=== PATIENT | female | born 1950 ===

== ENCOUNTER 2020-01-22 18:40 | Emergency (ER) | payer MEDICARE ==
[~2020-01-22] VITALS: Ht 157.5 cm; Wt 63.5 kg
[2020-01-22] MEDS ORDERED: HCTZ (18:49)
[2020-01-22] MEDS ORDERED: NIFEDIPINE (18:49)
--- NOTE | 2020-01-22 18:53 | NUR ---
PT IS IN ROOM #1B. DR CHAVEZ EVALUATED THE PT.
[2020-01-22] MEDS ORDERED: PROCHLORPERAZINE EDISYLATE 10 MG/2 ML VIAL IV ONE (19:00)
[2020-01-22] MEDS ORDERED: diphenhydrAMINE 50 MG/1 ML VIAL IV ONE (19:00)
--- NOTE | 2020-01-22 19:00 | NUR ---
Patient A/Ox4. Speech is clear, speaks in complete sentences. No acute neuro deficits noted. Patient is able to follow complex commands, equal extermination supervisor and strength both upper/lower extremities. Respiratory even and unlabored, no reports of cough or sob. Denies any n/v/d, or any gu distress. Will standby for MD order.
[2020-01-22] MEDS ORDERED: ASPI81TA31 PO (19:09)
[2020-01-22] MEDS ORDERED: PROCHLORPERAZINE EDISYLATE 10 MG/2 ML VIAL ONE (19:19)
[2020-01-22] MEDS ORDERED: diphenhydrAMINE 50 MG/1 ML VIAL ONE (19:19)
[2020-01-22 19:25] LABS: BASOPHILS # (AUTO) 0.1 K/uL (0.0-8.0); BASOPHILS % (AUTO) 1.1 % (0.0-2.0); EOSINOPHILS # (AUTO) 0.2 K/uL (0.0-0.7); EOSINOPHILS % (AUTO) 2.2 % (0.0-7.0); HEMATOCRIT 39.6 % (31.2-41.9); HEMOGLOBIN 13.3 g/dL (10.9-14.3); LYMPHOCYTES # (AUTO) 3.4 K/uL (20.0-40.0); LYMPHOCYTES % (AUTO) 41.9 % (20.5-51.5); MEAN CORPUSCULAR HEMOGLOBIN 27.3 uug (24.7-32.8); MEAN CORPUSCULAR HGB CONC 34 g/dL (32.3-35.6); MEAN CORPUSCULAR VOLUME 80.9 fL (75.5-95.3); MONOCYTES # (AUTO) 0.8 K/uL (2.0-10.0); MONOCYTES % (AUTO) 9.6 % (0.0-11.0); NEUTROPHILS # (AUTO) 3.6 K/uL (1.8-8.9); NEUTROPHILS % (AUTO) 45.2 % (38.5-71.5); PLATELET COUNT (AUTO) 196 K/uL (179-408); RED BLOOD CELL COUNT(AUTO) 4.89 MIL/uL (3.63-4.92)
[2020-01-22 19:36] LABS: CREATININE 0.9 mg/dL (0.6-1.3); POTASSIUM 3.4 mmol/L (3.5-5.1)
[2020-01-22] MEDS ORDERED: ONDANSETRON 4 MG/2 ML VIAL ONE (20:08)
--- NOTE | 2020-01-22 20:10 | NUR ---
Patient ambulated well with steady gait unassisted to the bathroom.
[2020-01-22] MEDS ORDERED: ONDANSETRON 4 MG/2 ML VIAL IV ONE (20:15)
--- NOTE | 2020-01-22 20:43 | NUR ---
Per ERMD, patient was ambulated to assess gait, patient was able to ambulate with a steady gait and without any complaints of any dizziness. ERMD aware.
[2020-01-22 20:53] VITALS: BP 160/72
--- NOTE | 2020-01-22 20:53 | NUR ---
Patient discharged to home in stable condition. Written and verbal after care instructions given. Patient verbalizes understanding of instructions. Stressed follow up or return to ER for worsening s/s. IV removed. Catheter intact and site benign. Pressure and 4x4 gauze applied to site. No bleeding noted.
== END 2020-01-22 20:54 | disposition home or self-care (01) ==
LOC: ER 18:40
DX: R42 Dizziness and giddiness (principal); I10 Essential (primary) hypertension; Z79.899 Other long term (current) drug therapy; R94.31 Abnormal electrocardiogram [ECG] [EKG]
CPT/HCPCS: 36415; 80048; 85025; 93005; 96374; 96375; 99284; J0780; J1200; J2405; A4663; J7030